=== PATIENT | male | born 1980 | race Caucasian/White ===

== ENCOUNTER 2021-08-15 12:49 | Emergency (ER) | payer BC, OTHER ==
[~2021-08-15] VITALS: Ht 193 cm; Wt 127.0 kg
[2021-08-15 12:50] VITALS: BP_SYST 130
[2021-08-15] MEDS ORDERED: DIPH-TET-PERTUS Vaccine 0.5 ML VIAL (ADACEL) I.M. ONE (13:15)
== END 2021-08-15 14:21 | disposition home or self-care (01) ==
LOC: SED 12:49
DX: S71.111A Laceration without foreign body, right thigh, initial encounter (principal); W27.1XXA Contact with garden tool, initial encounter; Y93.89 Activity, other specified; Y92.89 Other specified places as the place of occurrence of the external cause; Y99.8 Other external cause status
CPT/HCPCS: 73552; 90715; 99283